=== PATIENT | male | born 1950 | race Caucasian/White ===

== ENCOUNTER 2019-04-07 12:02 | Day surgery (SDC) | payer MEDICARE, BC ==
[2019-04-07] VITALS (12 sets, daily range): BP systolic 143–176; BP diastolic 63–86
[~2019-04-07] VITALS: Ht 175.3 cm; Wt 68.6 kg
[~2019-04-07 12:02] MED LIST: AMIO200T61 PO; AMLO2.5T2 PO; ASPI1CPM9 PO; ATOR40TA PO; BUSP5TAB3 PO; LISI-600 PO; NITR0.4T48 SL; PARO40TA PO; SILD50TA PO
[2019-04-07] MEDS ORDERED: normal saline 1,000 ML IV SCH (12:30)
[2019-04-07] MEDS ORDERED: diphenhydrAMINE 25mg capsule PO PRN (12:30)
[2019-04-07 13:18] LABS: BASOPHILS # (AUTO) 0.1 X10'3 (0-0.2); BASOPHILS % (AUTO) 0.9 % (0-1); EOSINOPHILS # (AUTO) 0.1 X10'3 (0-0.9); HEMATOCRIT 42.9 % (42.0-52.0); HEMOGLOBIN 14.6 g/dl (14.0-17.9); LYMPHOCYTES # (AUTO) 1.6 X10'3 (1.1-4.8); LYMPHOCYTES % (AUTO) 22.9 % (21-51); MEAN CORPUSCULAR HEMOGLOBIN 34.1 PG (27.0-31.0); MEAN CORPUSCULAR VOLUME 100.3 FL (78-98); MONOCYTES # (AUTO) 0.5 X10'3 (0-0.9); MONOCYTES % (AUTO) 7.7 % (2-12); NEUTROPHILS # (AUTO) 4.6 X10'3 (1.8-7.7); NEUTROPHILS % (AUTO) 67.5 % (42-75); PLATELET COUNT 235 X10'3 (140-440); RED BLOOD COUNT 4.27 X10'6 (4.70-6.10); RED CELL DISTRIBUTION WIDTH 13.8 % (11.5-14.5); WHITE BLOOD COUNT 6.8 X10'3 (4.5-11.0)
[2019-04-07 13:23] LABS: PARTIAL THROMBOPLASTIN TIME 24 SECONDS (22-32)
[2019-04-07 13:27] LABS: ALANINE AMINOTRANSFERASE 31 U/L (12-78); ALBUMIN 4.2 G/DL (3.4-5.0); ALBUMIN/GLOBULIN RATIO 1.1 (1.1-1.5); ALKALINE PHOSPHATASE 76 IU/L (46-116); ANION GAP 8 (8-16); ASPARTATE AMINO TRANSFERASE 25 U/L (10-37); BILIRUBIN,TOTAL 0.3 MG/DL (0.1-1.0); BLOOD UREA NITROGEN 21 MG/DL (7-18); BUN/CREATININE RATIO 15.1 (5.4-32.0); CALCIUM 9.3 MG/DL (8.5-10.1); CHLORIDE 103 MMOL/L (99-107); CREATININE 1.39 MG/DL (0.60-1.10); GLUCOSE 87 MG/DL (70-104); MAGNESIUM 1.7 MG/DL (1.5-2.4); POTASSIUM 4.3 MMOL/L (3.5-5.1); SODIUM 139 MMOL/L (135-145); TOTAL PROTEIN 7.9 G/DL (6.4-8.2); eGFR 51 ML/MIN
[2019-04-07] MEDS ORDERED: heparin 1,000unit/ml 10ml vial 10 ML ONE (14:11)
[2019-04-07] MEDS ORDERED: iohexol 350 MG/1 ML 200ml bottle ONE (14:11)
[2019-04-07] MEDS ORDERED: midazolam 2 mg/2 ml injection ONE ×3 (14:11→14:51)
[2019-04-07] MEDS ORDERED: fentaNYL/PF 50MCG/1 ML 2ML syringe ONE ×2 (14:11→14:56)
[2019-04-07] MEDS ORDERED: LIDOcaine 1% (10mg/ml)w/preservative injection 20ml MDV ONE (14:11)
[2019-04-07] MEDS ORDERED: proCHLORperazine 10 MG/2 ml inj ONE (14:56)
[2019-04-07] MEDS ORDERED: clopidogrel 300mg tablet ONE (15:47)
== END 2019-04-07 19:50 | disposition home or self-care (01) ==
LOC: SSTAY O 12:02
PROVIDERS: ATTEND Internal Medicine Cardiovascular Disease
DX: I70.212 Atherosclerosis of native arteries of extremities with intermittent claudication, left leg (principal); I25.10 Atherosclerotic heart disease of native coronary artery without angina pectoris; I48.0 Paroxysmal atrial fibrillation; N18.9 Chronic kidney disease, unspecified; Z95.1 Presence of aortocoronary bypass graft; Z79.899 Other long term (current) drug therapy; Z79.82 Long term (current) use of aspirin
CPT/HCPCS: 36415; 37226; 80053; 83735; 85025; 85610; 85730; 93005; 99152; 99153; C1725; C1769; C1876; C1894; J0780; J1644; J2001; J2250; J3010; J7030; Q9967; A4620; C1760; C2623

== ENCOUNTER 2019-05-12 07:29 | Day surgery (SDC) | payer MEDICARE, BC ==
[~2019-05-12] VITALS: Ht 180.3 cm; Wt 70.0 kg
[2019-05-12] VITALS (10 sets, daily range): BP systolic 148–176; BP diastolic 56–111
[~2019-05-12 07:29] MED LIST changes: -BUSP5TAB3 PO; -SILD50TA PO
[2019-05-12] MEDS ORDERED: diphenhydrAMINE 25mg capsule PO PRN (07:55)
[2019-05-12] MEDS ORDERED: normal saline 1,000 ML IV SCH (07:55)
[2019-05-12 08:26] LABS: BASOPHILS # (AUTO) 0.1 X10'3 (0-0.2); BASOPHILS % (AUTO) 1.2 % (0-1); EOSINOPHILS # (AUTO) 0.2 X10'3 (0-0.9); EOSINOPHILS % (AUTO) 2.3 % (0-6); HEMATOCRIT 42.4 % (42.0-52.0); HEMOGLOBIN 14.6 g/dl (14.0-17.9); LYMPHOCYTES # (AUTO) 1.5 X10'3 (1.1-4.8); LYMPHOCYTES % (AUTO) 21.8 % (21-51); MEAN CORPUSCULAR HGB CONC 34.4 g/dL (33.0-36.5); MEAN CORPUSCULAR VOLUME 98.8 FL (78-98); MEAN PLATELET VOLUME 8.2 FL (7.4-10.4); MONOCYTES # (AUTO) 0.5 X10'3 (0-0.9); MONOCYTES % (AUTO) 7.5 % (2-12); NEUTROPHILS # (AUTO) 4.6 X10'3 (1.8-7.7); NEUTROPHILS % (AUTO) 67.2 % (42-75); PLATELET COUNT 224 X10'3 (140-440); RED BLOOD COUNT 4.29 X10'6 (4.70-6.10); RED CELL DISTRIBUTION WIDTH 13.6 % (11.5-14.5); WHITE BLOOD COUNT 6.9 X10'3 (4.5-11.0)
[2019-05-12 08:31] LABS: ANION GAP 5 (8-16); BLOOD UREA NITROGEN 19 MG/DL (7-18); BUN/CREATININE RATIO 13.7 (5.4-32.0); CALCIUM 8.9 MG/DL (8.5-10.1); CHLORIDE 104 MMOL/L (99-107); CREATININE 1.39 MG/DL (0.60-1.10); GLUCOSE 85 MG/DL (70-104); POTASSIUM 3.8 MMOL/L (3.5-5.1); SODIUM 139 MMOL/L (135-145); TOTAL CARBON DIOXIDE 29.8 MMOL/L (24-32); eGFR 51 ML/MIN
[2019-05-12] MEDS ORDERED: CLOP75TA15 PO (08:31)
[2019-05-12] MEDS ORDERED: EZET10TA21 PO (08:31)
[2019-05-12] MEDS ORDERED: LIDOcaine 1% (10mg/ml)w/preservative injection 20ml MDV ONE (09:15)
[2019-05-12] MEDS ORDERED: iohexol 350 MG/1 ML 200ml bottle ONE (09:16)
[2019-05-12] MEDS ORDERED: heparin 1,000unit/ml 10ml vial 10 ML ONE ×2 (09:16→10:54)
[2019-05-12] MEDS ORDERED: midazolam 2 mg/2 ml injection ONE ×2 (09:28→09:50)
[2019-05-12] MEDS ORDERED: fentaNYL/PF 50MCG/1 ML 2ML syringe ONE (09:28)
[2019-05-12] MEDS ORDERED: proCHLORperazine 10 MG/2 ml inj ONE (09:28)
[2019-05-12] MEDS ORDERED: iohexol 350MG/ML 100ml bottle IV ONE (11:01)
[2019-05-12] MEDS ORDERED: clopidogrel 300mg tablet ONE (11:47)
== END 2019-05-12 15:29 | disposition home or self-care (01) ==
LOC: SSTAY O 07:29
PROVIDERS: ATTEND Internal Medicine Cardiovascular Disease
DX: I70.212 Atherosclerosis of native arteries of extremities with intermittent claudication, left leg (principal); M79.662 Pain in left lower leg; Z72.0 Tobacco use; I25.2 Old myocardial infarction; I25.10 Atherosclerotic heart disease of native coronary artery without angina pectoris; Z95.1 Presence of aortocoronary bypass graft; I48.91 Unspecified atrial fibrillation; Z79.01 Long term (current) use of anticoagulants; R20.0 Anesthesia of skin; I44.7 Left bundle-branch block, unspecified; I12.9 Hypertensive chronic kidney disease with stage 1 through stage 4 chronic kidney disease, or unspecified chronic kidney disease; N18.9 Chronic kidney disease, unspecified
CPT/HCPCS: 36415; 37221; 37226; 80048; 83735; 85025; 85610; 93005; 99152; 99153; C1725; C1769; C1874; C1876; C1894; J0780; J1644; J2001; J2250; J3010; J7030; Q0163; Q9967; 36247; A4620; A6258; C1760; C2623

== ENCOUNTER 2019-06-23 09:11 | Day surgery (SDC) | payer MEDICARE, BC ==
[~2019-06-23] VITALS: Ht 180.3 cm; Wt 71.4 kg
[2019-06-23] VITALS (9 sets, daily range): BP systolic 128–151; BP diastolic 56–75
[~2019-06-23 09:11] MED LIST changes: -ATOR40TA PO; +CLOP75TA15 PO; +EZET10TA6 PO
[2019-06-23] MEDS ORDERED: heparin 1,000unit/ml 10ml vial 10 ML ONE (09:24)
[2019-06-23] MEDS ORDERED: midazolam 2 mg/2 ml injection ONE ×4 (09:24→10:31)
[2019-06-23] MEDS ORDERED: iohexol 350 MG/1 ML 200ml bottle ONE (09:24)
[2019-06-23] MEDS ORDERED: fentaNYL/PF 50MCG/1 ML 2ML syringe ONE (09:24)
[2019-06-23] MEDS ORDERED: LIDOcaine 1% (10mg/ml)w/preservative injection 20ml MDV ONE (09:24)
[2019-06-23] MEDS ORDERED: diphenhydrAMINE 25mg capsule PO PRN (09:35)
[2019-06-23] MEDS ORDERED: normal saline 1,000 ML IV SCH (09:35)
[2019-06-23] MEDS ORDERED: RIVA2.5T PO (09:52)
[2019-06-23] MEDS ORDERED: ISOS60TA4 PO (09:52)
[2019-06-23] MEDS ORDERED: ATOR-2 PO (09:52)
[2019-06-23] MEDS ORDERED: HYDR-3965 PO (09:52)
[2019-06-23 09:56] LABS: BASOPHILS % (AUTO) 0.7 % (0-1); EOSINOPHILS # (AUTO) 0.1 X10'3 (0-0.9); EOSINOPHILS % (AUTO) 1.7 % (0-6); HEMATOCRIT 41.6 % (42.0-52.0); HEMOGLOBIN 14.3 g/dl (14.0-17.9); LYMPHOCYTES # (AUTO) 1.1 X10'3 (1.1-4.8); LYMPHOCYTES % (AUTO) 15.8 % (21-51); MEAN CORPUSCULAR HEMOGLOBIN 33.4 PG (27.0-31.0); MEAN CORPUSCULAR HGB CONC 34.3 g/dL (33.0-36.5); MEAN CORPUSCULAR VOLUME 97.4 FL (78-98); MEAN PLATELET VOLUME 7.6 FL (7.4-10.4); MONOCYTES # (AUTO) 0.6 X10'3 (0-0.9); MONOCYTES % (AUTO) 7.6 % (2-12); NEUTROPHILS # (AUTO) 5.4 X10'3 (1.8-7.7); NEUTROPHILS % (AUTO) 74.2 % (42-75); PLATELET COUNT 258 X10'3 (140-440); RED BLOOD COUNT 4.27 X10'6 (4.70-6.10); RED CELL DISTRIBUTION WIDTH 13.9 % (11.5-14.5); WHITE BLOOD COUNT 7.3 X10'3 (4.5-11.0)
[2019-06-23 10:07] LABS: ALBUMIN 3.9 G/DL (3.4-5.0); ANION GAP 5 (8-16); BLOOD UREA NITROGEN 19 MG/DL (7-18); BUN/CREATININE RATIO 13.7 (5.4-32.0); CALCIUM 9.2 MG/DL (8.5-10.1); CHLORIDE 104 MMOL/L (99-107); CREATININE 1.39 MG/DL (0.60-1.10); GLUCOSE 91 MG/DL (70-104); MAGNESIUM 1.9 MG/DL (1.5-2.4); POTASSIUM 4.4 MMOL/L (3.5-5.1); SODIUM 140 MMOL/L (135-145); TOTAL CARBON DIOXIDE 30.8 MMOL/L (24-32); eGFR 51 ML/MIN
[2019-06-23] MEDS ORDERED: nitroGLYCERIN-Tridil 50MG/D5W 250 ML IV ONE (10:54)
[2019-06-23] MEDS ORDERED: verapamil 2.5 mg/ml inj IV ONE (10:56)
[2019-06-23] MEDS ORDERED: iohexol 350MG/ML 100ml bottle IV ONE (11:21)
[2019-06-23] MEDS ORDERED: HYDROcodone/acetaminophen 10/325mg tab PO PRN (12:20)
[2019-06-23] MEDS ORDERED: ondansetron/PF 4mg/2ml inj IV PRN (12:20)
[2019-06-23] MEDS ORDERED: proCHLORperazine 10 MG/2 ml inj IV PRN (12:20)
[2019-06-23] MEDS ORDERED: HYDROcodone/acetaminophen 5mg/325mg tablet PO PRN (12:20)
[2019-06-23] MEDS ORDERED: normal saline 1000ml 1,000 ML IV SCH (12:20)
[2019-06-23] MEDS ORDERED: ketorolac tromethamine 15mg/ml inj. IV ONE (13:05)
== END 2019-06-23 15:30 | disposition home or self-care (01) ==
LOC: SSTAY O 09:11
PROVIDERS: ATTEND Internal Medicine Cardiovascular Disease
DX: I70.213 Atherosclerosis of native arteries of extremities with intermittent claudication, bilateral legs (principal); I25.10 Atherosclerotic heart disease of native coronary artery without angina pectoris; I44.7 Left bundle-branch block, unspecified; I12.9 Hypertensive chronic kidney disease with stage 1 through stage 4 chronic kidney disease, or unspecified chronic kidney disease; N18.3 Chronic kidney disease, stage 3 (moderate); F32.9 Major depressive disorder, single episode, unspecified; M19.90 Unspecified osteoarthritis, unspecified site; Z79.01 Long term (current) use of anticoagulants; Z79.899 Other long term (current) drug therapy; Z95.1 Presence of aortocoronary bypass graft; Z87.891 Personal history of nicotine dependence
CPT/HCPCS: 36415; 37225; 75716; 80048; 83735; 85025; 85610; 93005; C1725; C1760; C1769; C1885; C1894; J1644; J1885; J2001; J2250; J3010; J7030; Q9967; 37224; 37246; 99152; 99153; A4620; A6258; C2623; J3490

== ENCOUNTER 2019-12-04 12:13 | Day surgery (SDC) | payer MEDICARE, BC ==
[~2019-12-04] VITALS: Ht 175.3 cm; Wt 71.3 kg
[2019-12-04] VITALS (11 sets, daily range): BP systolic 122–174; BP diastolic 62–91
[~2019-12-04 12:13] MED LIST changes: -ASPI1CPM9 PO; +ATOR-2 PO; +HYDR-3965 PO; +ISOS60TA4 PO; +RIVA2.5T PO
[2019-12-04] MEDS ORDERED: diphenhydrAMINE 25mg capsule PO PRN (12:40)
[2019-12-04] MEDS ORDERED: normal saline 1,000 ML IV SCH (12:40)
[2019-12-04 12:58] LABS: BASOPHILS # (AUTO) 0.1 X10'3 (0-0.2); BASOPHILS % (AUTO) 0.9 % (0-1); EOSINOPHILS # (AUTO) 0.1 X10'3 (0-0.9); EOSINOPHILS % (AUTO) 1.3 % (0-6); HEMATOCRIT 42.8 % (42.0-52.0); HEMOGLOBIN 14.4 g/dl (14.0-17.9); LYMPHOCYTES # (AUTO) 1.4 X10'3 (1.1-4.8); LYMPHOCYTES % (AUTO) 21.7 % (21-51); MEAN CORPUSCULAR HEMOGLOBIN 32.7 PG (27.0-31.0); MEAN CORPUSCULAR HGB CONC 33.7 g/dL (33.0-36.5); MEAN CORPUSCULAR VOLUME 96.9 FL (78-98); MEAN PLATELET VOLUME 8.2 FL (7.4-10.4); MONOCYTES # (AUTO) 0.5 X10'3 (0-0.9); MONOCYTES % (AUTO) 7.6 % (2-12); NEUTROPHILS # (AUTO) 4.4 X10'3 (1.8-7.7); NEUTROPHILS % (AUTO) 68.5 % (42-75); PLATELET COUNT 233 X10'3 (140-440); RED BLOOD COUNT 4.41 X10'6 (4.70-6.10); RED CELL DISTRIBUTION WIDTH 14.8 % (11.5-14.5); WHITE BLOOD COUNT 6.3 X10'3 (4.5-11.0)
[2019-12-04 13:09] LABS: ALBUMIN 3.6 G/DL (3.4-5.0); ANION GAP 7 (8-16); BLOOD UREA NITROGEN 22 MG/DL (7-18); BUN/CREATININE RATIO 15.1 (5.4-32.0); CALCIUM 9.3 MG/DL (8.5-10.1); CHLORIDE 107 MMOL/L (99-107); CREATININE 1.46 MG/DL (0.60-1.10); GLUCOSE 98 MG/DL (70-104); POTASSIUM 4.6 MMOL/L (3.5-5.1); SODIUM 142 MMOL/L (135-145); TOTAL CARBON DIOXIDE 28.1 MMOL/L (24-32); eGFR 48 ML/MIN
[2019-12-04] MEDS ORDERED: HYDR-4353 PO (13:49)
[2019-12-04] MEDS ORDERED: GABA600T13 PO (13:49)
[2019-12-04] MEDS ORDERED: GABA300C PO ×2 (13:49)
[2019-12-04] MEDS ORDERED: midazolam 2 mg/2 ml injection ONE ×2 (14:57→16:41)
[2019-12-04] MEDS ORDERED: fentaNYL/PF 50MCG/1 ML 2ML syringe ONE (14:57)
[2019-12-04] MEDS ORDERED: LIDOcaine 1% (10mg/ml)w/preservative injection 20ml MDV ONE (14:57)
[2019-12-04] MEDS ORDERED: heparin 1,000unit/ml 10ml vial 10 ML ONE (14:57)
[2019-12-04] MEDS ORDERED: iohexol 350 MG/1 ML 200ml bottle ONE (14:58)
[2019-12-04] MEDS ORDERED: hydrALAZINE 20mg/ml inj. IV ONE (16:44)
[2019-12-04] MEDS ORDERED: clopidogrel 300mg tablet ONE (16:56)
== END 2019-12-04 21:00 | disposition home or self-care (01) ==
LOC: SSTAY O 12:13
PROVIDERS: ATTEND Internal Medicine Cardiovascular Disease
DX: I70.223 Atherosclerosis of native arteries of extremities with rest pain, bilateral legs (principal); I25.10 Atherosclerotic heart disease of native coronary artery without angina pectoris; I25.2 Old myocardial infarction; I48.0 Paroxysmal atrial fibrillation; I44.7 Left bundle-branch block, unspecified; I12.9 Hypertensive chronic kidney disease with stage 1 through stage 4 chronic kidney disease, or unspecified chronic kidney disease; N18.9 Chronic kidney disease, unspecified; G89.29 Other chronic pain; Z95.1 Presence of aortocoronary bypass graft; Z86.73 Personal history of transient ischemic attack (TIA), and cerebral infarction without residual deficits; Z79.899 Other long term (current) drug therapy; Z95.820 Peripheral vascular angioplasty status with implants and grafts
CPT/HCPCS: 36415; 37226; 75716; 80048; 83735; 85025; 85610; 93005; 99152; 99153; C1725; C1760; C1769; C1876; C1894; J0360; J1644; J2001; J2250; J3010; J7030; Q0163; Q9967; A4620; A6258; C2623

== ENCOUNTER 2019-12-30 17:54 | Emergency (ER) | payer MEDICARE, BC ==
[~2019-12-30] VITALS: Ht 175.3 cm; Wt 71.8 kg
[~2019-12-30 17:54] MED LIST changes: -ATOR-2 PO; +EZET10TA48 PO; -EZET10TA6 PO; +GABA300C PO; -HYDR-3965 PO; +HYDR-4353 PO; -NITR0.4T48 SL
[2019-12-30 18:17] VITALS: BP 155/59
--- NOTE | 2019-12-30 19:14 | NUR ---
working on getting the woundvac piece needed for fluid collection.
== END 2019-12-30 21:04 | disposition home or self-care (01) ==
LOC: ER 17:54
DX: J34.89 Other specified disorders of nose and nasal sinuses (principal); I99.9 Unspecified disorder of circulatory system; Z79.01 Long term (current) use of anticoagulants; Z79.899 Other long term (current) drug therapy
CPT/HCPCS: 99284

== ENCOUNTER 2019-12-31 12:46 | Emergency (ER) | payer MEDICARE, BC ==
[~2019-12-31] VITALS: Ht 175.3 cm; Wt 70.6 kg
[2019-12-31 14:28] VITALS: BP 95/56
--- NOTE | 2019-12-31 15:01 | NUR ---
PROVIDED PT WITH WARM BLANKETS
[2019-12-31 15:03] LABS: BASOPHILS # (AUTO) 0.1 X10'3 (0-0.2); BASOPHILS % (AUTO) 0.6 % (0-1); EOSINOPHILS # (AUTO) 0.2 X10'3 (0-0.9); EOSINOPHILS % (AUTO) 2.1 % (0-6); HEMATOCRIT 32.5 % (42.0-52.0); LYMPHOCYTES % (AUTO) 12.2 % (21-51); MEAN CORPUSCULAR HEMOGLOBIN 33.4 PG (27.0-31.0); MEAN CORPUSCULAR HGB CONC 33.7 g/dL (33.0-36.5); MEAN CORPUSCULAR VOLUME 99.2 FL (78-98); MEAN PLATELET VOLUME 8.5 FL (7.4-10.4); MONOCYTES # (AUTO) 0.8 X10'3 (0-0.9); MONOCYTES % (AUTO) 9.7 % (2-12); NEUTROPHILS # (AUTO) 6.2 X10'3 (1.8-7.7); NEUTROPHILS % (AUTO) 75.4 % (42-75); PLATELET COUNT 251 X10'3 (140-440); RED BLOOD COUNT 3.28 X10'6 (4.70-6.10); WHITE BLOOD COUNT 8.3 X10'3 (4.5-11.0)
[2019-12-31 15:12] LABS: PARTIAL THROMBOPLASTIN TIME 28 SECONDS (22-32)
[2019-12-31 15:13] LABS: ALANINE AMINOTRANSFERASE 29 U/L (12-78); ALBUMIN 3.2 G/DL (3.4-5.0); ALBUMIN/GLOBULIN RATIO 0.8 (1.1-1.5); ALKALINE PHOSPHATASE 71 IU/L (46-116); ANION GAP 8 (8-16); ASPARTATE AMINO TRANSFERASE 40 U/L (10-37); BILIRUBIN,TOTAL 0.7 MG/DL (0.1-1.0); BLOOD UREA NITROGEN 26 MG/DL (7-18); BUN/CREATININE RATIO 15.3 (5.4-32.0); CALCIUM 9.1 MG/DL (8.5-10.1); CHLORIDE 105 MMOL/L (99-107); GLUCOSE 117 MG/DL (70-104); POTASSIUM 4.5 MMOL/L (3.5-5.1); SODIUM 140 MMOL/L (135-145); TOTAL CARBON DIOXIDE 26.8 MMOL/L (24-32); TOTAL PROTEIN 7.2 G/DL (6.4-8.2); eGFR 40 ML/MIN
--- NOTE | 2019-12-31 15:36 | NUR ---
SPOKE WITH WOUND VAC REP, HE IS BRINGING IN A REPLACEMENT VAC FOR PT. Addendum: 12/31/19 at 1536 by SALVATORE NOTE ENTERED BY REENA FLORES
--- NOTE | 2019-12-31 17:28 | NUR ---
pt seen for wound vac cartrige being full of bright red blood, he was adviced to be admitted, but wanted to f/u as out pt, his cartridge was changed, pt statse understanding of d/c instructions.
== END 2019-12-31 17:33 | disposition home or self-care (01) ==
LOC: ER 12:47
DX: T82.838A Hemorrhage due to vascular prosthetic devices, implants and grafts, initial encounter (principal); I25.10 Atherosclerotic heart disease of native coronary artery without angina pectoris; I10 Essential (primary) hypertension; I25.2 Old myocardial infarction; Z86.73 Personal history of transient ischemic attack (TIA), and cerebral infarction without residual deficits; Z95.5 Presence of coronary angioplasty implant and graft; Z95.1 Presence of aortocoronary bypass graft; Z79.899 Other long term (current) drug therapy; Y92.89 Other specified places as the place of occurrence of the external cause
CPT/HCPCS: 36415; 80053; 85025; 85610; 85730; 99283

== ENCOUNTER 2020-01-01 11:03 | Day surgery (SDC) | payer MEDICARE, BC ==
[2020-01-08] MEDS ORDERED: LIDOcaine 2% 5ml jelly ONE (10:22)
[2020-01-19] MEDS ORDERED: METO-539 PO (10:14)
[2020-01-20] MEDS ORDERED: LISI10TA4 PO (10:14)
[2020-01-20] MEDS ORDERED: ASPI-1071 PO (10:14)
== END 2020-01-08 12:06 | disposition home or self-care (01) ==
LOC: WOUND CARE 11:03
PROVIDERS: ATTEND Nurse Practitioner Family
DX: T81.89XA Other complications of procedures, not elsewhere classified, initial encounter (principal); L98.492 Non-pressure chronic ulcer of skin of other sites with fat layer exposed; I13.0 Hypertensive heart and chronic kidney disease with heart failure and stage 1 through stage 4 chronic kidney disease, or unspecified chronic kidney disease; N18.9 Chronic kidney disease, unspecified; I50.9 Heart failure, unspecified; I25.10 Atherosclerotic heart disease of native coronary artery without angina pectoris; I25.2 Old myocardial infarction; I73.9 Peripheral vascular disease, unspecified; E07.9 Disorder of thyroid, unspecified; J43.9 Emphysema, unspecified; E78.5 Hyperlipidemia, unspecified; G89.29 Other chronic pain; I44.7 Left bundle-branch block, unspecified; F32.9 Major depressive disorder, single episode, unspecified; F17.200 Nicotine dependence, unspecified, uncomplicated; F15.90 Other stimulant use, unspecified, uncomplicated; Z95.1 Presence of aortocoronary bypass graft; Z86.73 Personal history of transient ischemic attack (TIA), and cerebral infarction without residual deficits; Z86.718 Personal history of other venous thrombosis and embolism; Z85.828 Personal history of other malignant neoplasm of skin; Z95.5 Presence of coronary angioplasty implant and graft; Z79.899 Other long term (current) drug therapy; Z79.2 Long term (current) use of antibiotics; Y83.8 Other surgical procedures as the cause of abnormal reaction of the patient, or of later complication, without mention of misadventure at the time of the procedure; Y92.238 Other place in hospital as the place of occurrence of the external cause
CPT/HCPCS: G0463 ×3

== ENCOUNTER 2020-01-11 13:24 | Day surgery (SDC) | payer MEDICARE, BC ==
[2020-01-11] MEDS ORDERED: LIDOcaine 2% 5ml jelly ONE (13:51)
[2020-01-11] MEDS ORDERED: LIDOcaine 1% w/epiNEPHrine 1:200,000 30ml vial ONE (14:32)
[2020-01-19] MEDS ORDERED: METO-539 PO (10:14)
[2020-01-20] MEDS ORDERED: LISI10TA4 PO (10:14)
[2020-01-20] MEDS ORDERED: ASPI-1071 PO (10:14)
== END 2020-01-11 15:32 | disposition home or self-care (01) ==
LOC: WOUND CARE 13:24
PROVIDERS: ATTEND Nurse Practitioner
DX: T81.89XD Other complications of procedures, not elsewhere classified, subsequent encounter (principal); I70.245 Atherosclerosis of native arteries of left leg with ulceration of other part of foot; L97.522 Non-pressure chronic ulcer of other part of left foot with fat layer exposed; L98.492 Non-pressure chronic ulcer of skin of other sites with fat layer exposed; I13.0 Hypertensive heart and chronic kidney disease with heart failure and stage 1 through stage 4 chronic kidney disease, or unspecified chronic kidney disease; N18.9 Chronic kidney disease, unspecified; I50.9 Heart failure, unspecified; I25.10 Atherosclerotic heart disease of native coronary artery without angina pectoris; I25.2 Old myocardial infarction; E07.9 Disorder of thyroid, unspecified; J43.9 Emphysema, unspecified; E78.5 Hyperlipidemia, unspecified; G89.29 Other chronic pain; I44.7 Left bundle-branch block, unspecified; F32.9 Major depressive disorder, single episode, unspecified; F17.200 Nicotine dependence, unspecified, uncomplicated; F15.90 Other stimulant use, unspecified, uncomplicated; Z95.1 Presence of aortocoronary bypass graft; Z86.73 Personal history of transient ischemic attack (TIA), and cerebral infarction without residual deficits; Z86.718 Personal history of other venous thrombosis and embolism; Z85.828 Personal history of other malignant neoplasm of skin; Z95.5 Presence of coronary angioplasty implant and graft; Z79.2 Long term (current) use of antibiotics; Z79.899 Other long term (current) drug therapy; Y83.8 Other surgical procedures as the cause of abnormal reaction of the patient, or of later complication, without mention of misadventure at the time of the procedure; Y92.238 Other place in hospital as the place of occurrence of the external cause
CPT/HCPCS: 73630; 87070; 87075; 87077; 87102; 87186; 97597

== ENCOUNTER 2020-01-16 10:40 | Day surgery (SDC) | payer MEDICARE, BC ==
[2020-01-16] MEDS ORDERED: LIDOcaine 2% 5ml jelly ONE (12:14)
[2020-01-16] MEDS ORDERED: LIDOcaine 1% w/epiNEPHrine 1:200,000 30ml vial ONE (13:15)
[2020-01-19] MEDS ORDERED: METO-539 PO (10:14)
[2020-01-20] MEDS ORDERED: ASPI-1071 PO (10:14)
[2020-01-20] MEDS ORDERED: LISI10TA4 PO (10:14)
== END 2020-01-16 15:44 | disposition home or self-care (01) ==
LOC: WOUND CARE 10:40
PROVIDERS: ATTEND Nurse Practitioner
DX: T81.89XD Other complications of procedures, not elsewhere classified, subsequent encounter (principal); L98.492 Non-pressure chronic ulcer of skin of other sites with fat layer exposed; I13.0 Hypertensive heart and chronic kidney disease with heart failure and stage 1 through stage 4 chronic kidney disease, or unspecified chronic kidney disease; N18.9 Chronic kidney disease, unspecified; I50.9 Heart failure, unspecified; I25.10 Atherosclerotic heart disease of native coronary artery without angina pectoris; I25.2 Old myocardial infarction; I73.9 Peripheral vascular disease, unspecified; E07.9 Disorder of thyroid, unspecified; J43.9 Emphysema, unspecified; E78.5 Hyperlipidemia, unspecified; G89.29 Other chronic pain; I44.7 Left bundle-branch block, unspecified; F32.9 Major depressive disorder, single episode, unspecified; F17.200 Nicotine dependence, unspecified, uncomplicated; F15.90 Other stimulant use, unspecified, uncomplicated; Z95.1 Presence of aortocoronary bypass graft; Z86.73 Personal history of transient ischemic attack (TIA), and cerebral infarction without residual deficits; Z86.718 Personal history of other venous thrombosis and embolism; Z85.828 Personal history of other malignant neoplasm of skin; Z95.5 Presence of coronary angioplasty implant and graft; Z79.899 Other long term (current) drug therapy; Z79.2 Long term (current) use of antibiotics; Y83.8 Other surgical procedures as the cause of abnormal reaction of the patient, or of later complication, without mention of misadventure at the time of the procedure
CPT/HCPCS: 93922; 93925; 97597

== ENCOUNTER 2020-01-23 13:51 | Day surgery (SDC) | payer MEDICARE, BC ==
[~2020-01-23 13:51] MED LIST changes: -AMLO2.5T2 PO; +ASPI-1071 PO; -LISI-600 PO; +LISI10TA4 PO; +METO-539 PO
[2020-01-23] MEDS ORDERED: LIDOcaine 2% 5ml jelly ONE (14:50)
== END 2020-01-23 16:20 | disposition home or self-care (01) ==
LOC: WOUND CARE 13:51
PROVIDERS: ATTEND Nurse Practitioner
DX: T81.89XD Other complications of procedures, not elsewhere classified, subsequent encounter (principal); I70.245 Atherosclerosis of native arteries of left leg with ulceration of other part of foot; L97.522 Non-pressure chronic ulcer of other part of left foot with fat layer exposed; I13.0 Hypertensive heart and chronic kidney disease with heart failure and stage 1 through stage 4 chronic kidney disease, or unspecified chronic kidney disease; I50.9 Heart failure, unspecified; N18.9 Chronic kidney disease, unspecified; E78.5 Hyperlipidemia, unspecified; I25.10 Atherosclerotic heart disease of native coronary artery without angina pectoris; I25.2 Old myocardial infarction; E07.9 Disorder of thyroid, unspecified; J43.9 Emphysema, unspecified; G89.29 Other chronic pain; I44.7 Left bundle-branch block, unspecified; F32.9 Major depressive disorder, single episode, unspecified; F17.200 Nicotine dependence, unspecified, uncomplicated; F15.90 Other stimulant use, unspecified, uncomplicated; Z95.1 Presence of aortocoronary bypass graft; Z86.73 Personal history of transient ischemic attack (TIA), and cerebral infarction without residual deficits; Z86.718 Personal history of other venous thrombosis and embolism; Z85.828 Personal history of other malignant neoplasm of skin; Z95.5 Presence of coronary angioplasty implant and graft; Z79.899 Other long term (current) drug therapy; Z79.2 Long term (current) use of antibiotics; Y83.8 Other surgical procedures as the cause of abnormal reaction of the patient, or of later complication, without mention of misadventure at the time of the procedure
CPT/HCPCS: 97597; 97598

== ENCOUNTER 2020-01-30 10:30 | Day surgery (SDC) | payer MEDICARE, BC ==
[2020-01-30] MEDS ORDERED: LIDOcaine 2% 5ml jelly ONE (11:09)
[2020-01-30] MEDS ORDERED: LIDOcaine 1%/PF 5ML 10 MG/ML VIAL ONE (11:20)
== END 2020-01-30 12:45 | disposition home or self-care (01) ==
LOC: WOUND CARE 10:30
PROVIDERS: ATTEND Nurse Practitioner
DX: T81.89XD Other complications of procedures, not elsewhere classified, subsequent encounter (principal); I70.245 Atherosclerosis of native arteries of left leg with ulceration of other part of foot; L97.522 Non-pressure chronic ulcer of other part of left foot with fat layer exposed; I13.0 Hypertensive heart and chronic kidney disease with heart failure and stage 1 through stage 4 chronic kidney disease, or unspecified chronic kidney disease; I50.9 Heart failure, unspecified; E78.5 Hyperlipidemia, unspecified; I25.10 Atherosclerotic heart disease of native coronary artery without angina pectoris; I25.2 Old myocardial infarction; E07.9 Disorder of thyroid, unspecified; J43.9 Emphysema, unspecified; G89.29 Other chronic pain; I44.7 Left bundle-branch block, unspecified; F32.9 Major depressive disorder, single episode, unspecified; F17.200 Nicotine dependence, unspecified, uncomplicated; F15.90 Other stimulant use, unspecified, uncomplicated; Z95.1 Presence of aortocoronary bypass graft; Z86.73 Personal history of transient ischemic attack (TIA), and cerebral infarction without residual deficits; Z86.718 Personal history of other venous thrombosis and embolism; Z85.828 Personal history of other malignant neoplasm of skin; Z95.5 Presence of coronary angioplasty implant and graft; Z79.899 Other long term (current) drug therapy; Z79.2 Long term (current) use of antibiotics; Y83.8 Other surgical procedures as the cause of abnormal reaction of the patient, or of later complication, without mention of misadventure at the time of the procedure
CPT/HCPCS: 97597

== ENCOUNTER 2020-02-02 09:10 | Day surgery (SDC) | payer MEDICARE, BC ==
[2020-02-02] MEDS ORDERED: LIDOcaine 2% 5ml jelly ONE (09:19)
[2020-02-02 10:49] LABS: BASOPHILS # (AUTO) 0.1 X10'3 (0-0.2); EOSINOPHILS # (AUTO) 0.3 X10'3 (0-0.9); EOSINOPHILS % (AUTO) 3.2 % (0-6); LYMPHOCYTES % (AUTO) 11.9 % (21-51); MEAN CORPUSCULAR HEMOGLOBIN 33.1 PG (27.0-31.0); MEAN CORPUSCULAR HGB CONC 33.4 g/dL (33.0-36.5); MEAN PLATELET VOLUME 7.8 FL (7.4-10.4); MONOCYTES # (AUTO) 0.5 X10'3 (0-0.9); MONOCYTES % (AUTO) 5.5 % (2-12); NEUTROPHILS # (AUTO) 6.9 X10'3 (1.8-7.7); NEUTROPHILS % (AUTO) 78.4 % (42-75); PRE OP HEMATOCRIT 36.5 % (42.0-52.0); PRE OP HEMOGLOBIN 12.2 g/dL (14.0-17.9); PRE OP PLATELET COUNT 328 X10'3 (140-440); RED BLOOD COUNT 3.69 X10'6 (4.70-6.10); RED CELL DISTRIBUTION WIDTH 14.9 % (11.5-14.5)
[2020-02-02 11:12] LABS: ALBUMIN 3.4 G/DL (3.4-5.0); ALKALINE PHOSPHATASE 70 IU/L (46-116); BLOOD UREA NITROGEN 27 MG/DL (7-18); BUN/CREATININE RATIO 15.7 (5.4-32.0); CALCIUM 9.2 MG/DL (8.5-10.1); CHLORIDE 104 MMOL/L (99-107); CREATININE 1.72 MG/DL (0.60-1.10); PRE OP ALT 41 U/L (30-65); PRE OP ANION GAP 6 (8-16); PRE OP AST 27 U/L (10-37); PRE OP BILIRUB, TOTAL 0.2 MG/DL (0.0-1.0); PRE OP GLUCOSE 109 MG/DL (70-104); PRE OP POTASSIUM 4.8 MMOL/L (3.4-5.1); PRE OP SODIUM 139 MMOL/L (135-145); TOTAL CARBON DIOXIDE 29.5 MMOL/L (24-32); TOTAL PROTEIN 6.9 G/DL (6.4-8.2); eGFR 40 ML/MIN
== END 2020-02-02 10:57 | disposition home or self-care (01) ==
LOC: WOUND CARE 09:10
PROVIDERS: ATTEND Nurse Practitioner
DX: T81.89XD Other complications of procedures, not elsewhere classified, subsequent encounter (principal); I70.245 Atherosclerosis of native arteries of left leg with ulceration of other part of foot; L97.522 Non-pressure chronic ulcer of other part of left foot with fat layer exposed; I13.0 Hypertensive heart and chronic kidney disease with heart failure and stage 1 through stage 4 chronic kidney disease, or unspecified chronic kidney disease; I50.9 Heart failure, unspecified; E78.5 Hyperlipidemia, unspecified; I25.10 Atherosclerotic heart disease of native coronary artery without angina pectoris; I25.2 Old myocardial infarction; E07.9 Disorder of thyroid, unspecified; J43.9 Emphysema, unspecified; G89.29 Other chronic pain; I44.7 Left bundle-branch block, unspecified; F32.9 Major depressive disorder, single episode, unspecified; F17.200 Nicotine dependence, unspecified, uncomplicated; F15.90 Other stimulant use, unspecified, uncomplicated; Z95.1 Presence of aortocoronary bypass graft; Z86.73 Personal history of transient ischemic attack (TIA), and cerebral infarction without residual deficits; Z86.718 Personal history of other venous thrombosis and embolism; Z85.828 Personal history of other malignant neoplasm of skin; Z95.5 Presence of coronary angioplasty implant and graft; Z79.899 Other long term (current) drug therapy; Z79.2 Long term (current) use of antibiotics; Y83.8 Other surgical procedures as the cause of abnormal reaction of the patient, or of later complication, without mention of misadventure at the time of the procedure
CPT/HCPCS: 36415; 80053; 85025; 87635; 93005; 97597

== ENCOUNTER 2020-02-06 08:55 | Day surgery (SDC) | payer MEDICARE, BC ==
[2020-02-06] MEDS ORDERED: LIDOcaine 2% 5ml jelly ONE ×2 (09:37→09:38)
== END 2020-02-06 10:31 | disposition home or self-care (01) ==
LOC: WOUND CARE 08:55
PROVIDERS: ATTEND Nurse Practitioner
DX: T81.89XD Other complications of procedures, not elsewhere classified, subsequent encounter (principal); I70.245 Atherosclerosis of native arteries of left leg with ulceration of other part of foot; L97.522 Non-pressure chronic ulcer of other part of left foot with fat layer exposed; S71.102D Unspecified open wound, left thigh, subsequent encounter; I13.0 Hypertensive heart and chronic kidney disease with heart failure and stage 1 through stage 4 chronic kidney disease, or unspecified chronic kidney disease; N18.3 Chronic kidney disease, stage 3 (moderate); I50.9 Heart failure, unspecified; E78.5 Hyperlipidemia, unspecified; I25.10 Atherosclerotic heart disease of native coronary artery without angina pectoris; I25.2 Old myocardial infarction; E07.9 Disorder of thyroid, unspecified; J43.9 Emphysema, unspecified; M79.89 Other specified soft tissue disorders; I48.0 Paroxysmal atrial fibrillation; G89.29 Other chronic pain; F32.9 Major depressive disorder, single episode, unspecified; F15.90 Other stimulant use, unspecified, uncomplicated; F17.210 Nicotine dependence, cigarettes, uncomplicated; Z95.1 Presence of aortocoronary bypass graft; Z86.73 Personal history of transient ischemic attack (TIA), and cerebral infarction without residual deficits; Z86.718 Personal history of other venous thrombosis and embolism; Z85.828 Personal history of other malignant neoplasm of skin; Z95.5 Presence of coronary angioplasty implant and graft; Z79.899 Other long term (current) drug therapy; Z79.2 Long term (current) use of antibiotics; Z79.02 Long term (current) use of antithrombotics/antiplatelets; Z79.01 Long term (current) use of anticoagulants; Z79.82 Long term (current) use of aspirin; Y83.8 Other surgical procedures as the cause of abnormal reaction of the patient, or of later complication, without mention of misadventure at the time of the procedure; X58.XXXD Exposure to other specified factors, subsequent encounter
CPT/HCPCS: 97597

== ENCOUNTER 2020-02-16 08:40 | Day surgery (SDC) | payer MEDICARE, BC ==
[2020-02-16] MEDS ORDERED: LIDOcaine 2% 5ml jelly ONE (09:04)
== END 2020-02-16 09:55 | disposition home or self-care (01) ==
LOC: WOUND CARE 08:40
PROVIDERS: ATTEND Nurse Practitioner
DX: T81.89XD Other complications of procedures, not elsewhere classified, subsequent encounter (principal); I70.245 Atherosclerosis of native arteries of left leg with ulceration of other part of foot; L97.522 Non-pressure chronic ulcer of other part of left foot with fat layer exposed; I13.0 Hypertensive heart and chronic kidney disease with heart failure and stage 1 through stage 4 chronic kidney disease, or unspecified chronic kidney disease; I50.9 Heart failure, unspecified; E78.5 Hyperlipidemia, unspecified; I25.10 Atherosclerotic heart disease of native coronary artery without angina pectoris; I25.2 Old myocardial infarction; E07.9 Disorder of thyroid, unspecified; J43.9 Emphysema, unspecified; G89.29 Other chronic pain; I44.7 Left bundle-branch block, unspecified; F32.9 Major depressive disorder, single episode, unspecified; F17.200 Nicotine dependence, unspecified, uncomplicated; F15.90 Other stimulant use, unspecified, uncomplicated; Z95.1 Presence of aortocoronary bypass graft; Z86.73 Personal history of transient ischemic attack (TIA), and cerebral infarction without residual deficits; Z86.718 Personal history of other venous thrombosis and embolism; Z85.828 Personal history of other malignant neoplasm of skin; Z95.5 Presence of coronary angioplasty implant and graft; Z79.899 Other long term (current) drug therapy; Z79.2 Long term (current) use of antibiotics; Y83.8 Other surgical procedures as the cause of abnormal reaction of the patient, or of later complication, without mention of misadventure at the time of the procedure
CPT/HCPCS: 97597

== ENCOUNTER 2020-02-23 09:40 | Day surgery (SDC) | payer MEDICARE, BC ==
[2020-02-23] MEDS ORDERED: LIDOcaine 1%/PF 5ML 10 MG/ML VIAL ONE (10:20)
[2020-02-23] MEDS ORDERED: LIDOcaine 2% 5ml jelly ONE (10:37)
== END 2020-02-23 11:02 | disposition home or self-care (01) ==
LOC: WOUND CARE 09:40
PROVIDERS: ATTEND Nurse Practitioner
DX: T81.89XD Other complications of procedures, not elsewhere classified, subsequent encounter (principal); I70.245 Atherosclerosis of native arteries of left leg with ulceration of other part of foot; L97.522 Non-pressure chronic ulcer of other part of left foot with fat layer exposed; I13.0 Hypertensive heart and chronic kidney disease with heart failure and stage 1 through stage 4 chronic kidney disease, or unspecified chronic kidney disease; I50.9 Heart failure, unspecified; E78.5 Hyperlipidemia, unspecified; I25.10 Atherosclerotic heart disease of native coronary artery without angina pectoris; I25.2 Old myocardial infarction; E07.9 Disorder of thyroid, unspecified; J43.9 Emphysema, unspecified; G89.29 Other chronic pain; I44.7 Left bundle-branch block, unspecified; F32.9 Major depressive disorder, single episode, unspecified; F17.200 Nicotine dependence, unspecified, uncomplicated; F15.90 Other stimulant use, unspecified, uncomplicated; Z95.1 Presence of aortocoronary bypass graft; Z86.73 Personal history of transient ischemic attack (TIA), and cerebral infarction without residual deficits; Z86.718 Personal history of other venous thrombosis and embolism; Z85.828 Personal history of other malignant neoplasm of skin; Z95.5 Presence of coronary angioplasty implant and graft; Z79.899 Other long term (current) drug therapy; Z79.2 Long term (current) use of antibiotics; Y83.8 Other surgical procedures as the cause of abnormal reaction of the patient, or of later complication, without mention of misadventure at the time of the procedure
CPT/HCPCS: 97597

== ENCOUNTER 2020-03-01 12:39 | Outpatient (CLI) | payer MEDICARE, BC ==
[~2020-03-01 12:39] MED LIST changes: -METO-539 PO
[2020-03-01] MEDS ORDERED: LIDOcaine 2% 5ml jelly ONE (13:17)
== END 2020-03-01 14:30 | disposition home or self-care (01) ==
LOC: WOUND CARE 12:39
PROVIDERS: ATTEND Nurse Practitioner
DX: I70.245 Atherosclerosis of native arteries of left leg with ulceration of other part of foot (principal); L97.522 Non-pressure chronic ulcer of other part of left foot with fat layer exposed; S91.302A Unspecified open wound, left foot, initial encounter; I13.0 Hypertensive heart and chronic kidney disease with heart failure and stage 1 through stage 4 chronic kidney disease, or unspecified chronic kidney disease; N18.9 Chronic kidney disease, unspecified; I50.9 Heart failure, unspecified; E78.5 Hyperlipidemia, unspecified; I25.10 Atherosclerotic heart disease of native coronary artery without angina pectoris; I25.2 Old myocardial infarction; E07.9 Disorder of thyroid, unspecified; J43.9 Emphysema, unspecified; G89.29 Other chronic pain; I44.7 Left bundle-branch block, unspecified; F32.9 Major depressive disorder, single episode, unspecified; F17.200 Nicotine dependence, unspecified, uncomplicated; F15.90 Other stimulant use, unspecified, uncomplicated; Z95.1 Presence of aortocoronary bypass graft; Z86.73 Personal history of transient ischemic attack (TIA), and cerebral infarction without residual deficits; Z86.718 Personal history of other venous thrombosis and embolism; Z85.828 Personal history of other malignant neoplasm of skin; Z95.5 Presence of coronary angioplasty implant and graft; Z79.899 Other long term (current) drug therapy; Z79.2 Long term (current) use of antibiotics; X58.XXXA Exposure to other specified factors, initial encounter; Y93.89 Activity, other specified; Y92.89 Other specified places as the place of occurrence of the external cause; Y99.8 Other external cause status
CPT/HCPCS: 97597

== ENCOUNTER 2020-03-07 10:12 | Outpatient (CLI) | payer MEDICARE, BC ==
[2020-03-07] MEDS ORDERED: LIDOcaine 2% 5ml jelly ONE (11:22)
== END 2020-03-07 23:59 | disposition home or self-care (01) ==
LOC: WOUND CARE 10:12
PROVIDERS: ATTEND Nurse Practitioner
DX: I70.245 Atherosclerosis of native arteries of left leg with ulceration of other part of foot (principal); L97.522 Non-pressure chronic ulcer of other part of left foot with fat layer exposed; S91.302D Unspecified open wound, left foot, subsequent encounter; I13.0 Hypertensive heart and chronic kidney disease with heart failure and stage 1 through stage 4 chronic kidney disease, or unspecified chronic kidney disease; N18.9 Chronic kidney disease, unspecified; I50.9 Heart failure, unspecified; E78.5 Hyperlipidemia, unspecified; I25.10 Atherosclerotic heart disease of native coronary artery without angina pectoris; I25.2 Old myocardial infarction; E07.9 Disorder of thyroid, unspecified; J43.9 Emphysema, unspecified; G89.29 Other chronic pain; I44.7 Left bundle-branch block, unspecified; F32.9 Major depressive disorder, single episode, unspecified; F17.200 Nicotine dependence, unspecified, uncomplicated; F15.90 Other stimulant use, unspecified, uncomplicated; Z95.1 Presence of aortocoronary bypass graft; Z86.73 Personal history of transient ischemic attack (TIA), and cerebral infarction without residual deficits; Z86.718 Personal history of other venous thrombosis and embolism; Z85.828 Personal history of other malignant neoplasm of skin; Z95.5 Presence of coronary angioplasty implant and graft; Z79.899 Other long term (current) drug therapy; Z79.2 Long term (current) use of antibiotics; X58.XXXD Exposure to other specified factors, subsequent encounter
CPT/HCPCS: 97597

== ENCOUNTER → 2020-03-15 | Outpatient (CLI) | payer MEDICARE, BC ==
[~2020-03-15] MED LIST changes: +AMLO5TAB21 PO; +ASPI-1397 PO; +ASPI1CPM9 PO; +ATOR80TA PO; +OXYC-145 PO
== END | disposition home or self-care (01) ==
LOC: EDSTATUS 03-14 09:40 → WOUND CARE 09:35
PROVIDERS: ATTEND Nurse Practitioner
DX: I70.245 Atherosclerosis of native arteries of left leg with ulceration of other part of foot (principal); L97.522 Non-pressure chronic ulcer of other part of left foot with fat layer exposed; S91.302D Unspecified open wound, left foot, subsequent encounter; I13.0 Hypertensive heart and chronic kidney disease with heart failure and stage 1 through stage 4 chronic kidney disease, or unspecified chronic kidney disease; N18.30 Chronic kidney disease, stage 3 unspecified; I50.9 Heart failure, unspecified; E78.5 Hyperlipidemia, unspecified; I25.10 Atherosclerotic heart disease of native coronary artery without angina pectoris; E07.9 Disorder of thyroid, unspecified; J43.9 Emphysema, unspecified; G89.29 Other chronic pain; I44.7 Left bundle-branch block, unspecified; M79.89 Other specified soft tissue disorders; F32.9 Major depressive disorder, single episode, unspecified; I48.0 Paroxysmal atrial fibrillation; F17.200 Nicotine dependence, unspecified, uncomplicated; Z79.2 Long term (current) use of antibiotics; F15.90 Other stimulant use, unspecified, uncomplicated; Z95.1 Presence of aortocoronary bypass graft; Z86.718 Personal history of other venous thrombosis and embolism; Z85.828 Personal history of other malignant neoplasm of skin; Z86.73 Personal history of transient ischemic attack (TIA), and cerebral infarction without residual deficits; Z79.899 Other long term (current) drug therapy; Z79.01 Long term (current) use of anticoagulants; Z95.5 Presence of coronary angioplasty implant and graft; Z79.02 Long term (current) use of antithrombotics/antiplatelets; Z79.82 Long term (current) use of aspirin; X58.XXXD Exposure to other specified factors, subsequent encounter
CPT/HCPCS: G0463

== ENCOUNTER 2020-04-08 07:52 | Observation (INO) | payer MEDICARE, BC ==
[~2020-04-08] VITALS: Ht 175.3 cm; Wt 70.9 kg
[2020-04-08] VITALS (24 sets, daily range): BP systolic 85–173; BP diastolic 57–81
[~2020-04-08 07:52] MED LIST changes: -AMLO5TAB21 PO; -ASPI-1397 PO; -ASPI1CPM9 PO; -ATOR80TA PO; -OXYC-145 PO
[2020-04-08] MEDS ORDERED: diphenhydrAMINE 25mg capsule PO PRN (08:10)
[2020-04-08] MEDS ORDERED: normal saline 1,000 ML IV SCH (08:10)
[2020-04-08 08:33] LABS: BASOPHILS # (AUTO) 0.1 X10'3 (0-0.2); EOSINOPHILS # (AUTO) 0.3 X10'3 (0-0.9); EOSINOPHILS % (AUTO) 3.8 % (0-6); HEMOGLOBIN 13.1 g/dl (14.0-17.9); LYMPHOCYTES # (AUTO) 1.6 X10'3 (1.1-4.8); LYMPHOCYTES % (AUTO) 23.2 % (21-51); MEAN CORPUSCULAR HEMOGLOBIN 32.2 PG (27.0-31.0); MEAN CORPUSCULAR HGB CONC 33.6 g/dL (33.0-36.5); MONOCYTES # (AUTO) 0.7 X10'3 (0-0.9); NEUTROPHILS # (AUTO) 4.3 X10'3 (1.8-7.7); PLATELET COUNT 183 X10'3 (140-440); RED BLOOD COUNT 4.07 X10'6 (4.70-6.10); RED CELL DISTRIBUTION WIDTH 13.8 % (11.5-14.5); WHITE BLOOD COUNT 6.9 X10'3 (4.5-11.0)
[2020-04-08] MEDS ORDERED: ASPI1CPM9 PO (08:40)
[2020-04-08] MEDS ORDERED: ATOR80TA PO (08:40)
[2020-04-08] MEDS ORDERED: OXYC-145 PO (08:40)
[2020-04-08] MEDS ORDERED: AMLO5TAB21 PO (08:40)
[2020-04-08] MEDS ORDERED: pneumococcal 23-VAL P-sac vacc 25 mcg/0.5ml vial IMVAC ONE (08:55)
[2020-04-08] MEDS ORDERED: FLU VACC QS2020-21(6MOS UP)/PF 60 MCG/0.5 ML SYRINGE IMVAC ONE (08:55)
[2020-04-08 08:58] LABS: ALBUMIN 3.6 G/DL (3.4-5.0); ANION GAP 9 (8-16); BLOOD UREA NITROGEN 28 MG/DL (7-18); BUN/CREATININE RATIO 19.9 (5.4-32.0); CALCIUM 9.2 MG/DL (8.5-10.1); CHLORIDE 108 MMOL/L (99-107); CREATININE 1.41 MG/DL (0.60-1.10); GLUCOSE 106 MG/DL (70-104); POTASSIUM 4.3 MMOL/L (3.5-5.1); SODIUM 143 MMOL/L (135-145); TOTAL CARBON DIOXIDE 26.1 MMOL/L (24-32); eGFR 50 ML/MIN
[2020-04-08] MEDS ORDERED: fentaNYL/PF 50MCG/1 ML 2ML syringe ONE (09:03)
[2020-04-08] MEDS ORDERED: iohexol 350 MG/1 ML 200ml bottle ONE (09:03)
[2020-04-08] MEDS ORDERED: midazolam 2 mg/2 ml injection ONE ×6 (09:03→10:43)
[2020-04-08] MEDS ORDERED: heparin 1,000unit/ml 10ml vial 10 ML ONE (09:03)
[2020-04-08] MEDS ORDERED: LIDOcaine 1% (10mg/ml)w/preservative injection 20ml MDV ONE (09:03)
[2020-04-08] MEDS ORDERED: normal saline 1000ml 1,000 ML IV SCH (12:00)
[2020-04-08] MEDS ORDERED: HYDROcodone/acetaminophen 5mg/325mg tablet PO PRN (12:00)
[2020-04-08] MEDS ORDERED: proCHLORperazine 10 MG/2 ml inj IV PRN (12:00)
[2020-04-08] MEDS ORDERED: ondansetron/PF 4mg/2ml inj IV PRN (12:00)
[2020-04-08] MEDS ORDERED: LISI10TA4 PO (12:34)
[2020-04-08] MEDS ORDERED: furosemide 20 MG/2 ML vial IV ONE (13:00)
[2020-04-08 13:40] LABS: HEMATOCRIT 33.7 % (42.0-52.0); HEMOGLOBIN 11.3 g/dl (14.0-17.9); MEAN CORPUSCULAR HEMOGLOBIN 32.5 PG (27.0-31.0); MEAN CORPUSCULAR HGB CONC 33.7 g/dL (33.0-36.5); MEAN CORPUSCULAR VOLUME 96.5 FL (78-98); MEAN PLATELET VOLUME 9.2 FL (7.4-10.4); PLATELET COUNT 171 X10'3 (140-440); RED BLOOD COUNT 3.49 X10'6 (4.70-6.10); RED CELL DISTRIBUTION WIDTH 13.9 % (11.5-14.5); WHITE BLOOD COUNT 7.7 X10'3 (4.5-11.0)
[2020-04-08] MEDS ORDERED: oxyCODONE/APAP 5-325mg tablet PO PRN (16:40)
[2020-04-08] MEDS ORDERED: ASPI-1397 PO (17:05)
[2020-04-08] MEDS: HYDROcodone/acetaminophen 10/325mg tab PO PRN ×2 (17:36→23:13)
--- NOTE | 2020-04-08 18:36 | NUR ---
Problems reprioritized. Patient report given, questions answered & plan of care reviewed with MARK Marr.
--- NOTE | 2020-04-08 18:40 | NUR ---
Patient in room [facility] 310. I have received report from Erin, and had the opportunity to ask questions and assume patient care.
[2020-04-08] MEDS ORDERED: aspirin/dipyridamole 25mg/200mg SR. capsule PO SCH (20:00)
--- NOTE | 2020-04-08 21:00 | NUR ---
Femstop removed. patient is resting well.
[2020-04-09 02:00] VITALS: BP 101/60
--- NOTE | 2020-04-09 04:16 | NUR ---
Right groin site, clean, dry, intact. No changes from the small hematoma present before the shift change. No retroperitoneal hematoma, Patient is resting well.
[2020-04-09 06:30] VITALS: BP 169/83
--- NOTE | 2020-04-09 06:46 | NUR ---
Problems reprioritized. Patient report given to Howard, questions answered & plan of care reviewed with .
[2020-04-09] MEDS ORDERED: PARoxetine 20mg tablet PO SCH (08:00)
[2020-04-09] MEDS ORDERED: atorvastatin 20mg tablet PO SCH (08:00)
[2020-04-09] MEDS ORDERED: isosorbide mononitrate 30mg tab.SR.24H PO SCH (08:00)
[2020-04-09] MEDS ORDERED: amLODIPine 2.5mg tablet PO SCH (08:00)
[2020-04-09] MEDS ORDERED: amiodarone 200mg tablet PO SCH (08:00)
[2020-04-09] MEDS ORDERED: ezetimibe 10mg tablet PO SCH (08:00)
[2020-04-09] MEDS ORDERED: gabapentin 300mg capsule PO SCH (08:00)
[2020-04-09] MEDS ORDERED: clopidogrel 75mg tablet PO SCH (08:00)
[2020-04-09 10:06] VITALS: BP_SYST 169
[2020-04-09] MEDS ORDERED: rivaroxaban 10mg tablet PO SCH (17:00)
== END 2020-04-09 11:40 | disposition home or self-care (01) ==
LOC: SSTAY O 07:52 → MED 3N 17:02
PROVIDERS: ADMIT Internal Medicine Cardiovascular Disease; ATTEND Internal Medicine Cardiovascular Disease
DX: I73.9 Peripheral vascular disease, unspecified (principal); I25.10 Atherosclerotic heart disease of native coronary artery without angina pectoris; J44.9 Chronic obstructive pulmonary disease, unspecified; I10 Essential (primary) hypertension; Z23 Encounter for immunization; Z79.899 Other long term (current) drug therapy
CPT/HCPCS: 36140; 36247; 36415; 37226; 80048; 83735; 85025; 85027; 85610; 90732; 93005; 96360; 96361; C1725; C1876; C1894; G0008; G0009; G0378; J1644; J2001; J2250; J3010; J7030; J7040; Q0163; Q2039; Q9967; 99152; 99153; A4620

== ENCOUNTER 2020-09-27 06:16 | Day surgery (SDC) | payer MEDICARE, BC ==
[~2020-09-27] VITALS: Ht 180.3 cm; Wt 77.8 kg
[2020-09-27] VITALS (13 sets, daily range): BP systolic 116–146; BP diastolic 53–81
[~2020-09-27 06:16] MED LIST changes: +AMLO5TAB21 PO; -ASPI-1071 PO; +ASPI-1397 PO; +ATOR80TA PO; -HYDR-4353 PO; -ISOS60TA4 PO; +ISOS60TA71 PO; +LISI10TA27 PO; -LISI10TA4 PO; +OXYC-145 PO
[2020-09-27] MEDS ORDERED: normal saline 1,000 ML IV SCH (06:40)
[2020-09-27] MEDS ORDERED: diphenhydrAMINE 25mg capsule PO PRN (06:40)
[2020-09-27 07:13] LABS: BASOPHILS % (AUTO) 0.8 % (0-1); EOSINOPHILS # (AUTO) 0.3 X10'3 (0-0.9); EOSINOPHILS % (AUTO) 4.7 % (0-6); HEMATOCRIT 33.8 % (42.0-52.0); HEMOGLOBIN 11.6 g/dl (14.0-17.9); LYMPHOCYTES # (AUTO) 1.4 X10'3 (1.1-4.8); MEAN CORPUSCULAR HEMOGLOBIN 32.9 PG (27.0-31.0); MEAN CORPUSCULAR HGB CONC 34.4 g/dL (33.0-36.5); MEAN CORPUSCULAR VOLUME 95.6 FL (78-98); MEAN PLATELET VOLUME 8.5 FL (7.4-10.4); MONOCYTES # (AUTO) 0.6 X10'3 (0-0.9); MONOCYTES % (AUTO) 10.6 % (2-12); NEUTROPHILS # (AUTO) 3.4 X10'3 (1.8-7.7); NEUTROPHILS % (AUTO) 59.9 % (42-75); PLATELET COUNT 232 X10'3 (140-440); RED BLOOD COUNT 3.53 X10'6 (4.70-6.10); RED CELL DISTRIBUTION WIDTH 15.5 % (11.5-14.5); WHITE BLOOD COUNT 5.7 X10'3 (4.5-11.0)
[2020-09-27] MEDS ORDERED: HYDR-3964 PO (07:31)
[2020-09-27] MEDS ORDERED: ACET-2319 PO (07:31)
[2020-09-27] MEDS ORDERED: NITR0.4T48 PO (07:31)
[2020-09-27] MEDS ORDERED: TRAZ-251 PO (07:31)
[2020-09-27] MEDS ORDERED: MULT-227 PO (07:31)
[2020-09-27] MEDS ORDERED: AMLO10TA13 PO (07:31)
[2020-09-27 07:38] LABS: ALBUMIN 3.6 G/DL (3.4-5.0); ANION GAP 9 (8-16); BLOOD UREA NITROGEN 18 MG/DL (7-18); BUN/CREATININE RATIO 12.9 (5.4-32.0); CALCIUM 8.8 MG/DL (8.5-10.1); CHLORIDE 110 MMOL/L (99-107); CREATININE 1.39 MG/DL (0.60-1.10); GLUCOSE 94 MG/DL (70-104); MAGNESIUM 1.9 MG/DL (1.5-2.4); POTASSIUM 4.1 MMOL/L (3.5-5.1); SODIUM 145 MMOL/L (135-145); TOTAL CARBON DIOXIDE 26.2 MMOL/L (24-32); eGFR 51 ML/MIN
[2020-09-27] MEDS ORDERED: fentaNYL/PF 50MCG/1 ML 2ML syringe ONE (07:41)
[2020-09-27] MEDS ORDERED: midazolam 1 mg/ML 2ml injection ONE ×3 (07:41→09:20)
[2020-09-27] MEDS ORDERED: heparin 1,000unit/ml 10ml vial 10 ML ONE (07:41)
[2020-09-27] MEDS ORDERED: iohexol 350 MG/1 ML 200ml bottle ONE (07:41)
[2020-09-27] MEDS ORDERED: LIDOcaine 1% (10mg/ml)w/preservative injection 20ml MDV ONE (08:16)
[2020-09-27] MEDS ORDERED: clopidogrel 300mg tablet ONE (09:45)
[2020-09-27] MEDS ORDERED: OXAZEpam 15mg capsule PO PRN (10:40)
[2020-09-27] MEDS ORDERED: HYDROcodone/acetaminophen 5mg/325mg tablet PO PRN (10:40)
[2020-09-27] MEDS ORDERED: HYDROcodone/acetaminophen 10/325mg tab PO PRN (10:40)
[2020-09-27] MEDS ORDERED: proCHLORperazine 10 MG/2 ml inj IV PRN (10:40)
[2020-09-27] MEDS ORDERED: ondansetron/PF 4mg/2ml inj IV PRN (10:40)
[2020-09-27] MEDS ORDERED: normal saline 1000ml 1,000 ML IV SCH (10:40)
== END 2020-09-27 15:10 | disposition home or self-care (01) ==
LOC: SSTAY O 06:16
PROVIDERS: ATTEND Internal Medicine Cardiovascular Disease
DX: I70.212 Atherosclerosis of native arteries of extremities with intermittent claudication, left leg (principal); I25.10 Atherosclerotic heart disease of native coronary artery without angina pectoris; I65.23 Occlusion and stenosis of bilateral carotid arteries; I44.7 Left bundle-branch block, unspecified; I12.9 Hypertensive chronic kidney disease with stage 1 through stage 4 chronic kidney disease, or unspecified chronic kidney disease; N18.9 Chronic kidney disease, unspecified; E78.5 Hyperlipidemia, unspecified; F32.9 Major depressive disorder, single episode, unspecified; I48.0 Paroxysmal atrial fibrillation; M19.90 Unspecified osteoarthritis, unspecified site; Z79.899 Other long term (current) drug therapy; Z79.82 Long term (current) use of aspirin; Z95.1 Presence of aortocoronary bypass graft; Z98.890 Other specified postprocedural states; Z87.891 Personal history of nicotine dependence
CPT/HCPCS: 36415; 37226; 37230; 75710; 80048; 83735; 85025; 85610; 93005; 99152; 99153; C1725; C1760; C1769; C1874; C1876; C1894; J1644; J2001; J2250; J3010; J7030; Q0163; Q9967; A4620; A6258; C2623